=== PATIENT | female | born 1950 | race Caucasian/White ===

== ENCOUNTER 2018-05-08 07:52 | Day surgery (SDC) | payer OTHER ==
[~2018-05-08 07:52] MED LIST: CEFAZOLIN 2 GM/50 ML (PMX) 50 ML IVPB; LIDOCAINE 2% (SDV) 5 ML INJ; SOD CHLORIDE 0.9% 1,000 ML IV
[2018-05-08 08:36] LABS: ADD MAN DIFF? NO
[2018-05-08 08:39] LABS: BASOPHIL # 0.1 10^3/ul (0.0-0.1); BASOPHILS % 0.9 % (0.0-2.0); EOSINOPHILS # 0.3 10^3/ul (0.0-0.5); EOSINOPHILS % 4.7 % (0.0-7.0); HEMATOCRIT 39.7 % (37.0-47.0); HEMOGLOBIN 13.2 g/dl (12.0-16.0); LYMPHOCYTES # 2.2 10^3/ul (0.8-2.9); LYMPHOCYTES % 37.7 % (15.0-51.0); MEAN CORPUSCULAR HEMOGLOBIN 30.6 pg (29.0-33.0); MEAN CORPUSCULAR HGB CONC 33.2 g/dl (32.0-37.0); MEAN CORPUSCULAR VOLUME 91.9 fl (82.0-101.0); MEAN PLATELET VOLUME 10.3 fl (7.4-10.4); MONOCYTE # 0.5 10^3/ul (0.3-0.9); NEUTROPHIL # 2.7 10^3/ul (1.6-7.5); NEUTROPHILS % 47.5 % (39.0-77.0); PLATELET COUNT 228 10^3/UL (140-415); RED BLOOD COUNT 4.32 10^6/ul (4.20-5.40); RED CELL DISTRIBUTION WIDTH 12.4 % (11.5-14.5)
[2018-05-08 08:39] LABS: WHITE BLOOD COUNT 5.8 10^3/ul (4.8-10.8)
[2018-05-08] MEDS ORDERED: ACETAMINOPHEN 500 MG TAB PO (08:42)
[2018-05-08 09:00] LABS: INR 0.85; PROTIME 11.7 Sec (11.9-14.9); PT RATIO 0.9
[2018-05-08 09:01] LABS: PARTIAL THROMBOPLASTIN TIME 28.1 Sec (23.0-35.0)
[2018-05-08 09:04] LABS: ALANINE AMINOTRANSFERASE 20 IU/L (13-69); ALBUMIN 4.1 g/dl (3.3-4.9); ALBUMIN/GLOBULIN RATIO 0.89; ALKALINE PHOSPHATASE 80 IU/L (42-121); ANION GAP 11 (5-13); ASPARTATE AMINO TRANSFERASE 23 IU/L (15-46); BILIRUBIN,INDIRECT 0.3 mg/dl (0-1.1); BILIRUBIN,TOTAL 0.3 mg/dl (0.2-1.3); CALCIUM 9.7 mg/dl (8.4-10.2); CARBON DIOXIDE 28 mmol/L (21-31); CHLORIDE 107 mmol/L (97-110); CREATININE 0.71 mg/dl (0.44-1.00); Estimated GFR > 60 mL/min (>60); GLUCOSE 170 mg/dl (70-220); POTASSIUM 4.6 mmol/L (3.5-5.1); TOTAL PROTEIN 8.7 g/dl (6.1-8.1)
[2018-05-08 09:08] LABS: BLOOD UREA NITROGEN 23 mg/dl (7-20); SODIUM 146 mmol/L (135-144)
[2018-05-08 09:55] LABS: ADD UMIC YES; UR ASCORBIC ACID NEGATIVE (NEGATIVE); UR BACTERIA FEW /HPF (NONE SEEN); UR BILIRUBIN (Dip) NEGATIVE (NEGATIVE); UR BLOOD (Dip) 3+ mg/dL (NEGATIVE); UR CLARITY TURBID (CLEAR); UR COLOR YELLOW (YELLOW); UR GLUCOSE (Dip) NEGATIVE (NEGATIVE); UR KETONES (Dip) NEGATIVE (NEGATIVE); UR LEUKOCYTE ESTERASE (Dip) 3+ Leu/ul (NEGATIVE); UR MUCUS FEW /HPF (NONE SEEN); UR NITRITE (Dip) NEGATIVE (NEGATIVE); UR NONSQUAMOUS EPITHELIAL CELL 2 /HPF (NONE SEEN); UR RBC > 182 /HPF (0-5); UR SPECIFIC GRAVITY (Dip) 1.015 (1.003-1.030); UR SQUAMOUS EPITHELIAL CELL FEW /HPF (FEW); UR TOTAL PROTEIN (Dip) 1+ mg/dl (NEGATIVE); UR UROBILINOGEN (Dip) NEGATIVE (NEGATIVE); UR WBC > 182 /HPF (0-5)
[2018-05-08] MEDS ORDERED: HYDROmorphONE 1 MG/5 ML IV SYRINGE IV ×2 (11:30)
[2018-05-08] MEDS ORDERED: ONDANSETRON 4 MG INJ IV (11:30)
[2018-05-08] MEDS ORDERED: DIPHENHYDRAMINE 50 MG INJ IV (11:30)
[2018-05-08] MEDS ORDERED: OXYCODONE/ACETAMINOPHEN (5/325) TAB PO (11:30)
[2018-05-08] MEDS ORDERED: LABETALOL HCL 20MG INJ IV (11:30)
[2018-05-08] MEDS ORDERED: ALBUTEROL 0.083% (NEB) 2.5 MG/3 ML AMP HHN (11:30)
[2018-05-08] MEDS ORDERED: MEPERIDINE 25 MG INJ IV (11:30)
[2018-05-08] MEDS ORDERED: FENTAnyl 50 MCG/ML VIAL IV ×2 (11:30)
[2018-05-08] MEDS ORDERED: FENTAnyl 50 MCG/ML VIAL (11:53)
[2018-05-08] MEDS ORDERED: PROPOFOL 20 ML (11:53)
[2018-05-08] MEDS ORDERED: CEFAZOLIN 1 GM INJ (11:53)
[2018-05-08] MEDS ORDERED: FAMOTIDINE 20 MG INJ (11:53)
[2018-05-08] MEDS ORDERED: ONDANSETRON 4 MG INJ (12:01)
[2018-05-08] MEDS: OXYCODONE/ACETAMINOPHEN (5/325) TAB PO (13:53)
== END 2018-05-08 14:18 | disposition home or self-care (01) ==
LOC: SDS 07:52
DX: D05.12 Intraductal carcinoma in situ of left breast (principal); I10 Essential (primary) hypertension; E11.9 Type 2 diabetes mellitus without complications; E78.5 Hyperlipidemia, unspecified
CPT/HCPCS: 19301; 71045; 80053; 81001; 82962; 85025; 85610; 85730; 87086; 88307; 93005